=== PATIENT | female | born 1960 | race Caucasian/White ===

== ENCOUNTER 2016-05-10 22:32 | Emergency (ER) | payer SELFPAY ==
[2016-05-10] MEDS ORDERED: ASPIRIN TABLET 325 MG TAB PO ONE (23:07)
[2016-05-10] MEDS ORDERED: LIDOCAINE VIS-MYLANTA 30 ML UD PO ONE (23:08)
[2016-05-10] MEDS ORDERED: NITROGLYCERIN 0.4 MG 25 EA TAB SL ONE (23:28)
[2016-05-10] MEDS ORDERED: CLOPIDOGREL 75 MG TAB PO ONE (23:30)
[2016-05-10] MEDS ORDERED: METOPROLOL TARTRATE 25 MG TAB PO ONE (23:31)
--- NOTE | 2016-05-10 23:36 | RAD ---
EXAM DESCRIPTION: XR CHEST 2 VIEWS CLINICAL HISTORY: right sided chest pain atypical chest pain. COMPARISON: None. FINDINGS: Cardiac silhouette is within normal limits. Aorta is tortuous. EKG leads project over the chest. There is no focal parenchymal or pleural disease. There is no acute osseous process visualized. IMPRESSION: No evidence of acute cardiopulmonary disease. Electronically signed by: Andres Drew 05/10/2016 23:35
--- NOTE | 2016-05-10 23:38 | RAD ---
EXAM DESCRIPTION: XR ABDOMEN 2 VIEWS SUPINE ERECT CLINICAL HISTORY: vomiting COMPARISON: None. FINDINGS: Supine and upright images of the abdomen were submitted. There is no free air in the abdomen. There is no evidence of bowel obstruction. There are surgical clips within the upper abdomen. Calcification projecting over the left kidney could represent a renal stone. EKG leads project over the abdomen. IMPRESSION: No acute abnormalities. Electronically signed by: Andres Drew 05/10/2016 23:36
[2016-05-10] MEDS ORDERED: ENOXAPARIN SODIUM 100 MG/ML SYG SUBCU ONE (23:39)
--- NOTE | 2016-05-10 23:59 | ED.PDOC ---
History of Present Illness - General Chief Complaint: Chest Pain/CO Stated Complaint: chest pain, short of breath Time Seen by Provider: 05/10/16 22:58 Source: patient, family Exam Limitations: no limitations - History of Present Illness Initial Comments: the patient is a 55-year-old female presenting from home to the emergency room after approximately 28 hours of coming and going chest pain. It started last night when she rolled over in bed. It is primarily right-sided. It is a little worse with movement and taking a deep breath. it does not seem to be related to exertion. No palpitations. No real shortness of breath. No syncope or near syncope. It starts substernal and then radiates towards the right. She apparently has had a history of fluid overload in the past but has not been told of any heart attacks in the past. She has not had any catheterizations. She does have some hypertension and hypercholesterolemia. The pain is rated at about an 8 out of 10 currently. She did vomiting one time prior to arrival. Timing/Duration: 24 hours Severity: moderate Improving Factors: nothing Worsening Factors: nothing Associated Symptoms: chest pain, malaise, nausea/vomiting Allergies/Adverse Reactions: Allergies NO KNOWN ALLERGY Allergy (Unverified 01/24/14 14:40) Home Medications: Ambulatory Orders Nitrofurantoin Monohydrate Mac [Macrobid] 100 mg PO BID #12 cap 01/24/14 Review of Systems - Review of Systems Constitutional: States: malaise EENTM: States: no symptoms reported Respiratory: States: no symptoms reported Cardiology: States: chest pain Gastrointestinal/Abdominal: States: no symptoms reported Genitourinary: States: no symptoms reported Musculoskeletal: States: no symptoms reported Skin: States: no symptoms reported Neurological: States: no symptoms reported Endocrine: States: no symptoms reported All other Systems: No Change from Baseline Past Medical History (General) - Patient Medical History Hx Cardiac Disorders: Yes Hx Congestive Heart Failure: Yes Hx Hypertension: Yes Hx Thyroid Disease: Yes Hx Diabetes: No Hx Renal Disease: Yes - Vaccination History Hx Tetanus, Diphtheria Vaccination: No Hx Influenza Vaccination: No Hx Pneumococcal Vaccination: No Immunizations Up to Date: No - Social History Hx Tobacco Use: Yes Family Medical History - Family History Mother Family History: No Known Hx Family Cancer: No Physical Exam - Physical Exam General Appearance: Alert, Anxious Eye Exam: bilateral normal Ears, Nose, Throat: normal ENT inspection, normal pharynx Neck: non-tender, full range of motion, supple Respiratory: chest non-tender, lungs clear, normal breath sounds, no respiratory distress, no accessory muscle use Cardiovascular/Chest: normal peripheral pulses, regular rate, rhythm, no edema Peripheral Pulses: radial,right: 2+, radial,left: 2+, dorsalis pedis,right: 2+, dorsalis pedis,left: 2+ Gastrointestinal/Abdominal: normal bowel sounds, non tender, soft Rectal Exam: deferred Back Exam: normal inspection, no CVA tenderness, no vertebral tenderness Extremity: normal range of motion, non-tender, normal inspection, no pedal edema , no calf tenderness, normal capillary refill 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 The patient has received a dose of Plavix, Lovenox, aspirin, metoprolol and a dose of nitroglycerin. She is on oxygen as well. Pain is improving with this treatment. The patient is being transferred to [facility] for cardiology evaluation. Vital signs have been stable. She has shown no evidence of significant arrhythmia. critical care time spent on procedures not otherwise billable 40 minutes. - Results/Orders Results/Orders: Laboratory Tests 05/10/16 23:06 WBC 11.8 H RBC 4.58 Hgb 14.8 Hct 43.4 MCV 94.9 MCH 32.4 H MCHC 34.1 RDW 14.7 H Plt Count 161 MPV 10.7 H Absolute Neuts (auto) 5.30 Absolute Lymphs (auto) 4.70 H Absolute Monos (auto) 1.60 H Absolute Eos (auto) 0.20 Absolute Basos (auto) 0.10 Neutrophils % 45.0 Neutrophils % (Manual) 43.0 Lymphocytes % 39.5 Lymphocytes % (Manual) 47.0 Monocytes % 13.2 H Monocytes % (Manual) 9.0 Eosinophils % 1.5 Basophils % 0.8 Band Neutrophils 1.0 Platelet Estimate Normal Normal RBC Morphology Normal rbc morph PT 12.2 INR 1.080 PTT (SP) 31.1 Sodium 140 Potassium 3.7 Chloride 104 Carbon Dioxide 27 Anion Gap 12.7 BUN 12 Creatinine 0.60 BUN/Creatinine Ratio 20.0 Random Glucose 110 H Serum Osmolality 279.8 Calcium 10.2 Magnesium 1.7 L Total Bilirubin 1.0 AST 67 H ALT 45 Alkaline Phosphatase 140 H Creatine Kinase 87 CK-MB (CK-2) 10.3 H* CK-MB (CK-2) % 11.84 H Troponin I 1.28 H* B-Natriuretic Peptide 53.7 Serum Total Protein 7.4 Albumin 3.6 Globulin 3.8 H Albumin/Globulin Ratio 0.9 L Amylase 62 chest x-ray appears largely benign. EKG shows [address] segment depression in leads V3 and V4 with T-wave inversions in leads V2 and V3. On the posterior EKG leads V7, V8 and V9 showed no evidence of ST elevation. Departure - Departure Clinical Impression: Non-ST elevated myocardial infarction Disposition: Transfer to Hospital Home Medications: Ambulatory Orders Nitrofurantoin Monohydrate Mac [Macrobid] 100 mg PO BID #12 cap 01/24/14 Transfer to Outside Facility - Transfer Information Accepting Provider:: dr mirna frost Accepting Facility: [facility] Reason for Transfer: required specialist not available
[2016-05-11 00:11] VITALS: BP 143/89; TEMP 98.1; O2SAT 95
[2016-05-11] MEDS ORDERED: NITROGLYCERIN/D5W IV 250 ML IVS ONE (00:20)
[2016-05-11] MEDS ORDERED: HYDROmorphone HCL INJ 2 MG/ML VIAL ONE (00:28)
[2016-05-11] MEDS ORDERED: HYDROmorphone HCL INJ 2 MG/ML VIAL IV SCH (00:30)
[2016-05-11] MEDS ORDERED: NITROGLYCERIN/D5W IV 250 ML IVS SCH (01:00)
== END 2016-05-11 00:40 | disposition short-term general hospital (02) ==
LOC: ER 22:32
DX: I21.4 Non-ST elevation (NSTEMI) myocardial infarction (principal); E78.00 Pure hypercholesterolemia, unspecified; R11.10 Vomiting, unspecified; I13.0 Hypertensive heart and chronic kidney disease with heart failure and stage 1 through stage 4 chronic kidney disease, or unspecified chronic kidney disease; I50.9 Heart failure, unspecified; N18.9 Chronic kidney disease, unspecified; E07.9 Disorder of thyroid, unspecified; Z79.899 Other long term (current) drug therapy; Z87.891 Personal history of nicotine dependence
CPT/HCPCS: 71020; 74010; 80053; 81001; 82150; 82550; 82553; 83735; 83880; 84484; 85025; 85610; 85730; 87086; 87088; 87186; 93005; J1170; J1650

== ENCOUNTER 2018-07-24 20:51 | Emergency (ER) | payer SELFPAY ==
--- NOTE | 2018-07-24 21:38 | ED.PDOC ---
History of Present Illness - General Chief Complaint: Lower Extremity Injury Stated Complaint: right lower back pain and RLQ pain Time Seen by Provider: 07/24/18 21:14 Source: patient, family - History of Present Illness Initial Comments: Pt awoke with R flank pain this am with N/V. Pain is worse with movement, but denies injury. Hx of Kidney stones and UTI's Timing/Duration: getting worse Severity: severe Improving Factors: immobilization Worsening Factors: movement Associated Symptoms: nausea/vomiting Allergies/Adverse Reactions: Allergies NO KNOWN ALLERGY Allergy (Verified 07/24/18 21:23) Home Medications: Ambulatory Orders Nitrofurantoin Monohydrate Mac [Macrobid] 100 mg PO BID #12 cap 01/24/14 Orphenadrine Citrate [Orphenadrine Citrate ER] 100 mg PO BID PRN #20 tab 07/24/18 Tramadol HCl 50 mg PO Q4HR PRN #20 tab 07/24/18 Review of Systems - Review of Systems Constitutional: States: chills, fever EENTM: States: no symptoms reported Respiratory: States: no symptoms reported Cardiology: States: no symptoms reported Gastrointestinal/Abdominal: States: abdominal pain, constipation, nausea, vomiting Genitourinary: Denies: dysuria, frequency Musculoskeletal: States: back pain Skin: States: no symptoms reported Neurological: States: no symptoms reported Endocrine: States: no symptoms reported Hematologic/Lymphatic: States: no symptoms reported Past Medical History (General) - Patient Medical History Hx Seizures: No Hx Stroke: No Hx Dementia: No Hx Asthma: No Hx of COPD: No Hx Cardiac Disorders: Yes - [place] Hx Congestive Heart Failure: Yes Hx Pacemaker: No Hx Hypertension: Yes Hx Thyroid Disease: Yes Hx Diabetes: No Hx Gastroesophageal Reflux: No Hx Renal Disease: Yes Hx Cancer: No Hx of HIV: No Hx Hepatitis C: No Hx MRSA: No Surgical History: appendectomy - Vaccination History Hx Tetanus, Diphtheria Vaccination: No Hx Influenza Vaccination: No Hx Pneumococcal Vaccination: No - Social History Hx Tobacco Use: Yes Family Medical History - Family History Mother Family History: No Known Hx Family Cancer: No Physical Exam - Physical Exam General Appearance: Alert, Obvious distress Eye Exam: bilateral normal Ears, Nose, Throat: hearing grossly normal, normal pharynx Neck: non-tender, full range of motion Respiratory: chest non-tender, lungs clear, normal breath sounds Cardiovascular/Chest: normal peripheral pulses, regular rate, rhythm, no edema Gastrointestinal/Abdominal: normal bowel sounds, soft - Mild tenderness without guarding or rebound Back Exam: normal inspection, CVA tenderness (R), decreased range of motion, muscle spasm Extremity: normal range of motion, non-tender, normal inspection Neurologic: alert, normal mood/affect, oriented x 3 Skin Exam: normal color, warm/dry Departure - Departure Clinical Impression: Lumbar back pain, Dehydration, Acute kidney injury Disposition: Discharge to Home or Self Care Departure Forms: ED Discharge - Pt. Copy, Patient Portal Self Enrollment Instructions: DI for Leg Pain Prescriptions: Tramadol HCl 50 mg PO Q4HR PRN #20 tab PRN Reason: Moderate To Severe Pain Orphenadrine Citrate [Orphenadrine Citrate ER] 100 mg PO BID PRN #20 tab PRN Reason: Muscle Spasms Home Medications: Ambulatory Orders Nitrofurantoin Monohydrate Mac [Macrobid] 100 mg PO BID #12 cap 01/24/14 Orphenadrine Citrate [Orphenadrine Citrate ER] 100 mg PO BID PRN #20 tab 07/24/18 Tramadol HCl 50 mg PO Q4HR PRN #20 tab 07/24/18
[2018-07-24] MEDS: KETOROLAC TROMETHAMINE INJ 30 MG/ML VIAL IV ONE (22:13)
[2018-07-24] MEDS: ONDANSETRON INJ 4 MG/2 ML VIAL IV ONE (22:13)
[2018-07-24] MEDS: MORPHINE SULFATE INJ 10 MG/ML VIAL IV ONE (22:14)
[2018-07-24] MEDS: SODIUM CHLORIDE 0.9% 1000ML 1,000 ML IVS ONE (22:46)
[2018-07-24 23:08] VITALS: O2SAT 95
[2018-07-24 23:58] VITALS: BP 125/76; TEMP 98.8
== END 2018-07-24 23:58 | disposition home or self-care (01) ==
LOC: ER 20:51
DX: N17.9 Acute kidney failure, unspecified (principal); E86.0 Dehydration; M54.5 Low back pain; R11.2 Nausea with vomiting, unspecified; I25.2 Old myocardial infarction; I50.9 Heart failure, unspecified; N18.9 Chronic kidney disease, unspecified; I13.10 Hypertensive heart and chronic kidney disease without heart failure, with stage 1 through stage 4 chronic kidney disease, or unspecified chronic kidney disease; E07.9 Disorder of thyroid, unspecified; Z90.49 Acquired absence of other specified parts of digestive tract; Z87.891 Personal history of nicotine dependence; Z87.442 Personal history of urinary calculi; Z87.440 Personal history of urinary (tract) infections
CPT/HCPCS: 36415; 74018; 80053; 81001; 85025; J1885; J2270; J2405; J7030